=== PATIENT | male | born 1965 | race Hispanic/Latino ===

== ENCOUNTER 2025-08-13 20:00 | Emergency (ER) | payer SELFPAY ==
[~2025-08-13] VITALS: Ht 160 cm; Wt 72.6 kg
--- NOTE | 2025-08-13 20:29 | ERN ---
ED Note History of Present Illness Stated Complaint: LEFT 2ND FINGER INJURY Chief Complaint: Wound Check Time Seen by MD: 20:11 Dictation: This is a 60-year-old male who presented to the ER complaining of on the localized in the dorsal area of left 1st finger. Patient reports that he noticed a lump on his finger around 9 months ago, one-week ago he went to a clinic in [place] and they open up, but no drainage came out. Patient denies trauma to the affected finger. He does complain of pain on and off to the affected left 1st finger. Fever chills. I explained to the patient that water he has looked like a granuloma. Allergies: Coded Allergies: No Known Allergies (Unverified Allergy, Unknown, 08/13/25) Home Meds Active Scripts Ibuprofen (Ibuprofen) 400 Mg Tablet, 1 TAB PO TID PRN for PAIN LEVEL 1 TO 5 for 20 Days, #30 TAB 0 Refills Prov:TWIN BUSTOS MD 08/13/25 Clindamycin HCl (Clindamycin HCl) 300 Mg Capsule, 1 CAP PO BID for 7 Days, #14 CAP 0 Refills Prov:TWIN BUSTOS MD 08/13/25 Mupirocin (Mupirocin Ointment) 2 % Oint, 1 APPL TP BID for 7 Days, #22 GM 0 Refills apply to affected area(s) Prov:TWIN BUSTOS MD 08/13/25 Past Medical History Past Medical History: No Pertinent History Surgical History: None Review of System Dictation NEGATIVE EXCEPT PER HPI Constitutional: Negative for fever,chills, and weight loss Eyes: Negative for injury, pain,redness, and discharge ENT: Negative for injury,pain or swelling Cardiovascular: denies chest pain, palpitations, and edema Respiratory: Negative for shortness of breath, cough, and wheezing, Abdomen/GI: Negative for abdominal pain, nausea, vomiting, diarrhea, and constipation Back: Negative for injury and pain : Negative for injury, bleeding and discharge MS/Extremity: Negative for injury and deformity Skin: Negative for rash, and discoloration Neuro: Negative for headache, weakness, numbness, tingling, and seizure Psych: Negative for suicide ideation, homicidal ideation, and hallucinations Initial Vital Sign VS Vital Signs Date Time Temp Pulse Resp B/P (MAP) Pulse Ox O2 Delivery O2 Flow Rate FiO2 11/14/25 20:09 98.1 89 16 142/96 96 Room Air 08/13/25 21:24 0 21 Physical Exam Dictation General: awake, alert, NAD Head/Face: Normocephalic, atraumatic Eyes: PERRL, EOMI, vision at baseline ENT: oral cavity clear, TMs clear, no signs of infection Neck: Trachea midline, supple, no nuchal rigidity Cardiovascular: RRR, normal S1/S2, No MRGs, no JVD Respiratory: CTAB, no respiratory distress, No rales or wheezes Abdomen: Soft , no tender Skin: 1st finger open granuloma in the dorsal aspect of hand. MS/Extremity: Pulses equal, no cyanosis, neurovascular intact, FROM Neuro: COAx4, GCS 15, strength 5/5, CN 2-12 intact, normal cerebellar exam, normal gait, Psych: Normal behavior, mood, and affect normal ED Course ED Course Orders Procedure Category Date Status Time Hand 3+Vws Lt RAD 08/13/25 Taken 20:22 Ibuprofen 800 Mg Tab PHA 08/13/25 Complete (Motrin) 20:30 Current Medications Medications (Trade) Dose Ordered Sig/Fred Route PRN Reason Start Time Stop Time Status Last Admin Dose Admin Ibuprofen (moTRIN) 800 mg ONCE ONCE PO 08/13/25 20:30 08/13/25 20:31 DC Vital Signs Date Time Temp Pulse Resp B/P (MAP) Pulse Ox O2 Delivery O2 Flow Rate FiO2 08/13/25 21:24 98.1 89 16 132/84 96 Room Air* 0 21 08/13/25 20:09 98.1 89 16 142/96 96 Room Air Medical Decision Making MDM 1-Granuloma affecting 1st left finger. 2-possible osteomyelitis affecting left 1st finger X-ray of hand I explained the patient that likely we will discharge him on oral and topical antibiotics He to follow up with Dermatology as outpatient DX & DISP Disposition: Discharge Departure Impression: Primary Impression: Pyogenic granuloma Condition: Stable Scripts Ibuprofen (Ibuprofen) 400 Mg Tablet 1 TAB PO TID PRN for PAIN LEVEL 1 TO 5 for 20 Days, #30 TAB 0 Refills Prov: TWIN BUSTOS MD 08/13/25 Clindamycin HCl (Clindamycin HCl) 300 Mg Capsule 1 CAP PO BID for 7 Days, #14 CAP 0 Refills Prov: TWIN BUSTOS MD 08/13/25 Mupirocin (Mupirocin Ointment) 2 % Oint 1 APPL TP BID for 7 Days, #22 GM 0 Refills apply to affected area(s) Prov: TWIN BUSTOS MD 08/13/25 Additional Instructions: RETURN TO ER FOR ANY ACUTE OR WORSENING SYMPTOMS. FOLLOW-UP IN 1-2 DAYS WITH PRIMARY PROVIDER FOR RECHECK OF TODAY'S SYMPTOMS. Referrals: NONE (PCP) LEIGH ANN GONSALES MD X-ray of the hand done: I do not see obvious signs of osteomyelitis. Pending final report. TWIN BUSTOS MD Aug 13, 2025 20:29
[2025-08-13] MEDS ORDERED: MUPI22OI2 TP (20:34)
[2025-08-13] MEDS ORDERED: IBUP-2076 PO (20:34)
[2025-08-13] MEDS ORDERED: CLIN-141 PO (20:34)
[2025-08-13 21:24] VITALS: BP 132/84; PULSE 89; RESP 16; TEMP 98; O2SAT 96
--- NOTE | 2025-08-13 21:49 | HMCIMG ---
EXAM: CR Right Hand, 4 Views. CLINICAL HISTORY: Rule out osteomyelitis in the first finger (indice). COMPARISON: None provided. FINDINGS: BONES: Degenerative changes are seen at the distal interphalangeal joint of the first digit with a small osteophyte. No aggressive appearing osseous lesion noted JOINTS: No evidence of dislocation. The joint spaces are normal. SOFT TISSUES: The soft tissues appear within normal limits. No radiopaque foreign body is seen. IMPRESSION: No acute pathology evident. No acute fracture or dislocation. /[place]
== END 2025-08-13 21:55 | disposition home or self-care (01) ==
LOC: EDH 20:00
DX: L98.0 Pyogenic granuloma (principal); M79.644 Pain in right finger(s)
CPT/HCPCS: 73130; 99283